=== PATIENT | male | born 1960 | race Caucasian/White ===

== ENCOUNTER → 2024-08-07 | Outpatient (CLI) | payer MEDICAID, SELFPAY ==
--- NOTE | 2024-08-07 10:45 | XR_ITS ---
Examination: Abdomen AP single view Technique: AP portable supine abdomen, single view Exam date and time: August 07, 2024 1113 hours INDICATIONS: Abdominal pain this week. FINDINGS: Moderate stool throughout the colon No obstruction Surgical clips upper right abdomen No free air IMPRESSION: Moderate stool throughout the colon
== END | disposition home or self-care (01) ==
DX: K59.00 Constipation, unspecified (principal)
CPT/HCPCS: 74018

== ENCOUNTER → 2024-09-28 | Outpatient (CLI) | payer MEDICAID, SELFPAY ==
--- NOTE | 2024-09-28 14:00 | XR_ITS ---
Examination: Abdomen sonogram, complete Date and time of exam: September 28, 2024 1500 hours INDICATIONS: Renal cystic lesions on MR abdomen November 26, 2022. Technique: Multiple real-time grayscale transabdominal sonographic images of the abdomen have been obtained. Findings: Absent gallbladder Normal common bile duct 0.5 cm Pancreatic head 1.9 cm Aorta not enlarged Liver 14.9 cm fatty infiltration Normal hepatopedal portal venous flow Patent IVC Right kidney 10.4 cm cortex 1.7 cm 5.5 cm lower pole cyst Left kidney 11.6 cm renal cortex 1.3 cm No cystic mass Spleen 7.8 cm IMPRESSION: 4.0 x 5.5 x 4.7 cm lower pole right renal cyst
== END | disposition home or self-care (01) ==
DX: N28.1 Cyst of kidney, acquired (principal)
CPT/HCPCS: 76700